=== PATIENT | female | born 1980 | race Caucasian/White ===

== ENCOUNTER → 2021-04-16 | Outpatient (CLI) | payer OTHER ==
[~2021-04-16] MED LIST: ALBU8.5H8 INH; SPIR25TA5 PO
[2021-04-16 09:12] LABS: ALANINE AMINOTRANSFERASE 22 U/L (12-78); ANION GAP 6 mmol/L (5-15); CALCIUM 9.3 mg/dL (8.5-10.1); CHLORIDE 107 mmol/L (98-107); CREATININE 0.84 mg/dL (0.55-1.02)
[2021-04-16 09:14] LABS: ALKALINE PHOSPHATASE 50 U/L (45-117); BILIRUBIN,TOTAL 0.5 mg/dL (0.2-1.0); TOTAL PROTEIN 7.5 g/dL (6.4-8.2)
== END | disposition home or self-care (01) ==
LOC: STAR 07:58
PROVIDERS: ATTEND Otolaryngology
DX: Z01.812 Encounter for preprocedural laboratory examination (principal); J35.01 Chronic tonsillitis; Z20.822 Contact with and (suspected) exposure to COVID-19
CPT/HCPCS: 36415; 80053; U0003; U0005

== ENCOUNTER 2021-04-21 06:34 | Day surgery (SDC) | payer OTHER ==
[~2021-04-21] VITALS: Ht 154.9 cm; Wt 46.5 kg
[2021-04-21] MEDS ORDERED: SILVER NITRATE STICK TP ONE (06:52)
[2021-04-21 07:08] VITALS: BP 102/70
[2021-04-21] MEDS ORDERED: CHLORHEXIDINE 15 ML UDC PO ONE (07:30)
[2021-04-21] MEDS ORDERED: LACTATED RINGERS 1,000 ML IV SCH (07:30)
[2021-04-21] MEDS ORDERED: FENTANYL PF 100 MCG/2ML ONE (08:23)
[2021-04-21] MEDS ORDERED: MIDAZOLAM 1 MG/ML, 2ML ONE (08:23)
[2021-04-21] MEDS ORDERED: IBUP200T49 PO (08:27)
[2021-04-21] MEDS ORDERED: OXYC5TAB2 PO (08:27)
[2021-04-21] MEDS ORDERED: SENN-99 PO (08:27)
[2021-04-21] MEDS ORDERED: ONDA4TAB13 SL (08:27)
[2021-04-21] MEDS ORDERED: ACET325T14 PO (08:27)
[2021-04-21] MEDS ORDERED: ONDANSETRON 2MG/ML, 2ML ONE (08:29)
[2021-04-21] MEDS ORDERED: DEXAMETHASONE 4 MG/ML, 1ML ONE (08:29)
[2021-04-21] MEDS ORDERED: SUCCINYLCHOLINE 20 MG/ML, 10ML ONE (08:29)
[2021-04-21] MEDS ORDERED: PROPOFOL 10 MG/ML, 20ML ONE (08:29)
[2021-04-21] MEDS ORDERED: ACETAMINOPHEN 325 MG TABLET PO PRN (09:00)
[2021-04-21] MEDS ORDERED: EPHEDRINE 50 MG/ML, 1ML IM PRN (09:00)
[2021-04-21] MEDS ORDERED: PROMETHAZINE 25 MG/ML, 1ML IVPush PRN (09:00)
[2021-04-21] MEDS ORDERED: MEPERIDINE/PF 25MG/0.5ML IVPush PRN (09:00)
[2021-04-21] MEDS ORDERED: ONDANSETRON 2MG/ML, 2ML IVPush PRN (09:00)
[2021-04-21] MEDS ORDERED: HYDROmorphone 1 MG/ML, 1ML INJ IVPush PRN (09:00)
[2021-04-21] MEDS ORDERED: FENTANYL PF 100 MCG/2ML IV PRN (09:00)
[2021-04-21] MEDS ORDERED: OXYcodone 5 MG/5 ML ORAL.SOL UDC PO PRN (09:00)
[2021-04-21] MEDS ORDERED: MIDAZOLAM 1 MG/ML, 2ML IV PRN (09:00)
[2021-04-21] MEDS ORDERED: OXYcodone 5 MG/5 ML ORAL.SOL UDC ONE (09:30)
[2021-04-21] MEDS ORDERED: ACETAMINOPHEN 650 MG/20.3 ML UDC ONE (09:30)
== END 2021-04-21 11:58 | disposition home or self-care (01) ==
LOC: OUT 06:34
PROVIDERS: ATTEND Otolaryngology
DX: J35.01 Chronic tonsillitis (principal); J35.8 Other chronic diseases of tonsils and adenoids; Z79.899 Other long term (current) drug therapy
CPT/HCPCS: 42826; 81025; 88304; J2250; J3010; J7120; J1100; J2405; J2704; J0330